=== PATIENT | female | born 1990 | race African-American/Black ===

== ENCOUNTER 2022-04-22 11:48 | Emergency (ER) | payer BC, OTHER ==
[2022-04-22 11:54] VITALS: PULSE 105; RESP 18; TEMP 97.2
--- NOTE | 2022-04-22 12:43 | ED ---
General Adult HPI - General Chief complaint: Extremity Injury, Lower Stated complaint: foot pain Time Seen by Provider: 04/22/22 12:26 Source: patient Mode of arrival: ambulatory Limitations: no limitations - History of Present Illness Initial comments: Dictation was produced using [employer] dictation software. please excuse any grammatical, word or spelling errors. Chief Complaint: 31-year-old female presents with left foot pain History of Present Illness: 31-year-old female presents emergency Department with left foot pain she states that it feels like the lower part of her foot just closer to the heel. Patient states it hurts when she ambulates. Patient has ever having had anything like this in the past. Denies any injury The ROS documented in this emergency department record has been reviewed and confirmed by me. Those systems with pertinent positive or negative responses have been documented in the HPI. All other systems are other negative and/or noncontributory. PHYSICAL EXAM: General Impression: Alert and oriented x3, not in acute distress HEENT: Normocephalic atraumatic, extra-ocular movements intact, pupils equal and reactive to light bilaterally, mucous membranes moist. Cardiovascular: Heart regular rate and rhythm Chest: Able to complete full sentences, no retractions, no tachypnea Musculoskeletal: Pulses present and equal in all extremities, no peripheral edema Motor: no focal deficits noted Neurological: CN II-XII grossly intact, no focal motor or sensory deficits noted Skin: Intact with no visualized rashes Psych: Normal affect and mood ED course: 31-year-old female presents emergency Department with atraumatic left foot pain. Clinical presentation consistent with plantar fasciitis. Vital signs upon arrival are within acceptable limits. Foot x-ray shows healed spur. Patient given outpatient referral to podiatry. She is also told of some maneuvers to improve her foot pain. - Related Data Allergies Allergy/AdvReac Type Severity Reaction Status Date / Time fluoxetine [From Prozac] AdvReac Unknown Verified 04/22/22 11:54 sertraline [From Zoloft] AdvReac Abdominal Verified 04/22/22 11:54 Pain Review of Systems ROS Statement: Those systems with pertinent positive or pertinent negative responses have been documented in the HPI. ROS Other: All systems not noted in ROS Statement are negative. Past Medical History Past Medical History: No Reported History History of Any Multi-Drug Resistant Organisms: None Reported Past Surgical History: Section Past Psychological History: Anxiety, Depression Smoking Status: Vaper Past Alcohol Use History: Occasional Past Drug Use History: None Reported General Exam Limitations: no limitations Course Vital Signs 04/22/22 11:52 Temperature 97.2 F L Pulse Rate 105 H Respiratory 18 Rate Disposition Clinical Impression: Plantar fasciitis Disposition: HOME SELF-CARE Condition: Good Instructions (If sedation given, give patient instructions): Plantar Fasciitis (ED), Plantar Fasciitis Exercises (ED) Is patient prescribed a controlled substance at d/c from ED?: No Referrals: Parvez Uribe DPM [STAFF PHYSICIAN] - 1-2 days Time of Disposition: 13:41
--- NOTE | 2022-04-22 13:22 | XR ---
EXAMINATION TYPE: XR foot complete 3 views LT DATE OF EXAM: 04/22/2022 Comparison: None Clinical History: 31-year-old female plantar fascia pain Findings: Smooth delineation of the Achilles tendon. No acute fracture, subluxation, or dislocation is seen. No sizable plantar heel spur. Joint spaces are maintained. Impression: No acute osseous abnormality seen. No sizable plantar heel spur.
== END 2022-04-22 14:38 | disposition home or self-care (01) ==
LOC: EC 11:48
DX: M72.2 Plantar fascial fibromatosis (principal); F32.A Depression, unspecified; F41.9 Anxiety disorder, unspecified; F17.290 Nicotine dependence, other tobacco product, uncomplicated; Z88.8 Allergy status to other drugs, medicaments and biological substances; Z88.2 Allergy status to sulfonamides
CPT/HCPCS: 99283